=== PATIENT | female | born 1975 | race Caucasian/White ===

== ENCOUNTER 2024-06-30 10:44 | Outpatient (CLI) | payer BC, MEDICAID, SELFPAY ==
--- NOTE | 2024-06-30 10:40 | MM_ITS ---
WS: [id number] BILATERAL 3D TOMOSYNTHESIS DIGITAL SCREENING MAMMOGRAM WITH CAD CLINICAL INFORMATION: SCREENING HISTORY: Screening mammogram. No current complaints. COMPARISON: Baseline TECHNIQUE: Bilateral CC and MLO views. FINDINGS: Fatty-replaced breasts bilaterally. No suspicious focal mass, asymmetry, calcifications, or architecture drafter ural distortion. No evidence of malignancy. Few incidental punctate calcifications LEFT breast. MM/[place] [id number] IMPRESSION: BI-RADS: 2-Benign FOLLOW UP: 1 Year Follow-up Recommend return to annual screening mammography.
== END 2024-06-30 10:45 | disposition home or self-care (01) ==
LOC: MOBLMAM 10:50
PROVIDERS: PCP Nurse Practitioner; Visit Provider Nurse Practitioner
DX: Z12.31 Encounter for screening mammogram for malignant neoplasm of breast (principal); R92.313 Mammographic fatty tissue density, bilateral breasts; R92.1 Mammographic calcification found on diagnostic imaging of breast
CPT/HCPCS: 77063; 77067

== ENCOUNTER 2025-04-14 08:19 | Outpatient (CLI) | payer BC, MEDICAID, SELFPAY ==
--- NOTE | 2025-04-14 08:30 | MR_ITS ---
WS: [id number] MRI LUMBAR SPINE NONCONTRAST HISTORY: INJURY OF LUMBAR SPINE COMPARISON: None available. TECHNIQUE: Sagittal and axial multisequence imaging is submitted. Mild cervical and thoracic spondylosis. Normal lumbar alignment. Partial lumbarization of S1. Disc spaces and vertebral body heights are well-preserved. Conus terminates normally at L1-2 disc level. L1-L2: Normal. L2-L3: Normal. L3-L4: Mild ligamentum flavum and facet arthritis. There is a small amount of fluid in the facet joints. L4-L5: Mild annular disc bulging with mild ligamentum flavum and facet arthritis. Very shallow LEFT foraminal disc protrusion is noted best on the sagittal imaging. There is very minimal contact on the exiting LEFT L4 nerve root. Small amount of fluid in the facet joints. Very minimal disc encroachment upon the subarticular recesses. 5 mm facet joint cyst on the LEFT. L5-S1: Mild annular disc bulging with mild osteophytic ridging. No significant disc encroachment on the S1 nerve roots. Fluid in the facet joints and moderate facet arthritis. Bilateral foraminal disc protrusions greater on the LEFT. There is very mild disc contact on the exiting LEFT L5 nerve root. There is extensive soft tissue edema in the subcutaneous soft tissues and paraspinal soft tissues of the lower lumbar spine on the RIGHT, most significant from L3-L5. Acute marrow edema is noted in the RIGHT L5 pedicle and transverse process. Suspicious for a nondisplaced fracture involving the RIGHT transverse process. There is also an associated 10 mm facet joint cyst on the RIGHT. Marrow edema continues into the RIGHT sacrum. MR/MR lumbar spine wo con* [id number] IMPRESSION: 1. High-grade central or foraminal stenosis. 2. L4-5: Shallow LEFT foraminal disc protrusion with contact on the LEFT L4 ex iting nerve root. 5 mm facet joint cyst on the LEFT. 3. L5-S1: Mild disc contact on the exiting LEFT L5 nerve root. Moderate facet joint arthropathy. 4. Focal soft tissue edema along the RIGHT lower lumbar spine most significant from L3-L5 consistent with a prior contusion. 5. Focal marrow edema in the RIGHT L5 pedicle and transverse process. Suspicio us for a nondisplaced fracture involving the RIGHT transverse process. 6. Marrow edema continues into the RIGHT sacrum which is probably also due to bone contusion. 7. Facet joint cyst and more significant acute synovitis involving L5-S1 RIGHT facet joint.
== END 2025-04-14 08:20 | disposition home or self-care (01) ==
LOC: RAD 08:20
PROVIDERS: PCP Nurse Practitioner Family; Visit Provider Nurse Practitioner Family
DX: S34.109D Unspecified injury to unspecified level of lumbar spinal cord, subsequent encounter (principal); X58.XXXD Exposure to other specified factors, subsequent encounter; M48.061 Spinal stenosis, lumbar region without neurogenic claudication; M47.897 Other spondylosis, lumbosacral region; R93.7 Abnormal findings on diagnostic imaging of other parts of musculoskeletal system; M71.38 Other bursal cyst, other site; M65.88 Other synovitis and tenosynovitis, other site; M47.892 Other spondylosis, cervical region; M24.28 Disorder of ligament, vertebrae; M47.896 Other spondylosis, lumbar region; M51.369 Other intervertebral disc degeneration, lumbar region without mention of lumbar back pain or lower extremity pain; M51.379 Other intervertebral disc degeneration, lumbosacral region without mention of lumbar back pain or lower extremity pain; M25.78 Osteophyte, vertebrae; M51.27 Other intervertebral disc displacement, lumbosacral region; M79.89 Other specified soft tissue disorders; M47.894 Other spondylosis, thoracic region
CPT/HCPCS: 72148